=== PATIENT | female | born 1955 | race Two or more races ===

== ENCOUNTER 2024-07-12 11:28 | Inpatient (IN) | payer OTHER ==
[~2024-07-12] VITALS: Ht 165.1 cm; Wt 60.1 kg
[2024-07-12 12:03] VITALS: PULSE 69; RESP 20; O2SAT 97
[2024-07-12 12:15] LABS: Urine Bacteria FEW /hpf (None Seen); Urine Blood 1+ /uL (Negative); Urine Color Yellow (Yellow); Urine Mucus FEW (None Seen); Urine Protein, UAD 1+ (Negative); Urine Urobilinogen 3 mg/dL (Negative); Urine WBC 6 /hpf (0 - 5)
[2024-07-12 12:18] LABS: Urine Clarity Clear (Clear)
[2024-07-12 12:29] LABS: Basophils # (auto) 0 10 ^3/uL (0-0.2); Basophils % (auto) 0.2 % (0.0-2.0); Eosinophils # (auto) 0.1 10 ^3/uL (0-0.8); Eosinophils % (auto) 0.7 % (0.0-7.0); Hematocrit 44.1 % (36.0-46.0); Hemoglobin 14.8 g/dL (12.2-16.2); Mean Corpuscular Hemoglobin 31.2 pg (28.0-32.0); Mean Corpuscular Hgb Conc. 33.5 g/dL (32.0-36.0); Mean Corpuscular Volume 93.3 fL (80.0-100.0); Monocytes # (auto) 1.8 10 ^3/uL (0-1.3); Monocytes % (auto) 11.6 % (0.0-12.0); Neutrophils # (auto) 12.9 10 ^3/uL (1.6-8.6); Neutrophils % (auto) 81.5 % (37.0-80.0); Platelet Count (auto) 201 10^3/uL (140-450); Red Blood Cells 4.73 10^6/uL (4.0-5.20); Red Cell Distribution Width 13.1 % (11.8-14.3); White Blood Cell 15.9 10^3/uL (4.4-10.8)
[2024-07-12 12:54] LABS: Alanine Aminotransferase 36 U/L (7-40); Albumin 4.3 g/dL (3.2-4.8); Alkaline Phosphatase 124 U/L (46-116); Anion Gap 8 (5-15); Aspartate Aminotransferase 31 U/L (13-40); Blood Urea Nitrogen 12 mg/dL (9-23); Calcium 9.6 mg/dL (8.7-10.4); Carbon Dioxide 25 mmol/L (20-30); Chloride 105 mmol/L (98-107); Glucose 117 mg/dL (74-106); Lipase 30 U/L (12-53); Potassium 4.7 mmol/L (3.5-5.1); Sodium 138 mmol/L (136-145)
[2024-07-12 12:55] LABS: Bilirubin, Total 1.2 mg/dL (0.2-1.0)
[2024-07-12] MEDS: ONDANSETRON HCL 4 MG/2 ML VIAL IV ONE (13:36)
[2024-07-12] MEDS: PANTOPRAZOLE 40 MG/10 ML VIAL INJ IV ONE (13:36)
[2024-07-12] MEDS: SODIUM CHLORIDE 0.9% 1,000 ML IV ONE (13:37)
[2024-07-12] MEDS ORDERED: ZOFR4T PO (15:57)
[2024-07-12] MEDS ORDERED: NITROGLYCERIN 0.4 MG SL TAB SL PRN (16:30)
[2024-07-12] MEDS ORDERED: MORPHINE SULFATE INJ 2 MG/ml SYRG IV PRN (16:30)
[2024-07-12] MEDS: DOXYCYCLINE 100MG/250ML 250 ML IV SCH (17:07)
[2024-07-12] MEDS: ONDANSETRON HCL 4 MG/2 ML VIAL IV PRN (18:53)
[2024-07-12] MEDS: MORPHINE SULFATE INJ 2 MG/ml SYRG IV PRN (18:53)
[2024-07-12 22:33] VITALS: BP 123/59; PULSE 70; RESP 17; TEMP 99.2; O2SAT 98
[2024-07-12] MEDS ORDERED: LEVO-849 PO (22:47)
[2024-07-12] MEDS ORDERED: ASPI1TAB20 PO (22:47)
[2024-07-12] MEDS ORDERED: LOSA-535 PO (22:47)
[2024-07-12] MEDS ORDERED: PROG200C21 PO (22:48)
[2024-07-12] MEDS: metroNIDAZOLE 500MG/100ML 100 ML IV SCH (23:37)
[2024-07-12 23:40] VITALS: BP 123/59; PULSE 70; RESP 16; TEMP 99.2; O2SAT 98
[2024-07-13] VITALS (8 sets, daily range): BP systolic 108–133; BP diastolic 47–68; PULSE 20–76; RESP 16–19; TEMP 97.6–98.7; O2SAT 94–96
[2024-07-13] MEDS: MORPHINE SULFATE 4 MG/ML SYR/VIAL IV PRN (01:16)
[2024-07-13] MEDS ORDERED: HYDROmorphone HCL 2 MG/ML VL/or syr IV PRN (02:00)
[2024-07-13 06:17] LABS: Alanine Aminotransferase 43 U/L (7-40); Albumin 3.4 g/dL (3.2-4.8); Alkaline Phosphatase 138 U/L (46-116); Anion Gap 5 (5-15); Aspartate Aminotransferase 45 U/L (13-40); BUN/Creatinine Ratio 8.1 (10.0-20.0); Bilirubin, Total 2.9 mg/dL (0.2-1.0); Blood Urea Nitrogen 7 mg/dL (9-23); Calcium 8.4 mg/dL (8.7-10.4); Carbon Dioxide 22 mmol/L (20-30); Chloride 108 mmol/L (98-107); Glucose 127 mg/dL (74-106); Lipase 48 U/L (12-53); Potassium 3.9 mmol/L (3.5-5.1); Sodium 135 mmol/L (136-145); Total Protein 5.7 g/dL (5.7-8.2)
[2024-07-13 06:18] LABS: INR 1.25 (0.9-1.15); Partial Thromboplastin Time 31.9 SEC (24.5-34.5)
[2024-07-13 06:32] LABS: Basophils # (auto) 0 10 ^3/uL (0-0.2); Basophils % (auto) 0.2 % (0.0-2.0); Eosinophils # (auto) 0.1 10 ^3/uL (0-0.8); Eosinophils % (auto) 0.8 % (0.0-7.0); Hematocrit 37.3 % (36.0-46.0); Hemoglobin 12.7 g/dL (12.2-16.2); Lymphocytes # (auto) 0.6 10 ^3/uL (0.4-5.4); Lymphocytes % (auto) 4.7 % (10.0-50.0); Mean Corpuscular Hemoglobin 31.8 pg (28.0-32.0); Mean Corpuscular Hgb Conc. 33.9 g/dL (32.0-36.0); Mean Corpuscular Volume 93.8 fL (80.0-100.0); Monocytes # (auto) 1.4 10 ^3/uL (0-1.3); Monocytes % (auto) 11.2 % (0.0-12.0); Neutrophils # (auto) 10.5 10 ^3/uL (1.6-8.6); Neutrophils % (auto) 83.1 % (37.0-80.0); Platelet Count (auto) 169 10^3/uL (140-450); Red Blood Cells 3.98 10^6/uL (4.0-5.20); Red Cell Distribution Width 12.6 % (11.8-14.3); White Blood Cell 12.7 10^3/uL (4.4-10.8)
[2024-07-13] MEDS: levoFLOXacin 500MG 100 ML IV SCH (08:24)
[2024-07-13] MEDS: ENOXAPARIN SOD 40 MG/0.4 ML SYRINGE SC SCH (08:24)
[2024-07-13] MEDS: FAMOTIDINE (10MG/ML) 2ML VL IV SCH (08:24)
[2024-07-13] MEDS: HYDROcodone-ACET 5/325MG TAB PO PRN (10:58)
[2024-07-14] VITALS (8 sets, daily range): BP systolic 103–143; BP diastolic 46–81; PULSE 60–85; RESP 16–19; TEMP 97.6–98.9; O2SAT 94–99
[2024-07-14 07:15] LABS: Alanine Aminotransferase 34 U/L (7-40); Alkaline Phosphatase 129 U/L (46-116); Anion Gap 8 (5-15); BUN/Creatinine Ratio 8.9 (10.0-20.0); Blood Urea Nitrogen 8 mg/dL (9-23); Calcium 8.5 mg/dL (8.7-10.4); Carbon Dioxide 21 mmol/L (20-30); Chloride 105 mmol/L (98-107); Glucose 130 mg/dL (74-106); Potassium 3.8 mmol/L (3.5-5.1); Sodium 134 mmol/L (136-145)
[2024-07-14 07:16] LABS: Aspartate Aminotransferase 22 U/L (13-40)
[2024-07-14 07:17] LABS: Albumin 3.4 g/dL (3.2-4.8); Bilirubin, Total 1.4 mg/dL (0.2-1.0); Total Protein 5.8 g/dL (5.7-8.2)
[2024-07-14 07:26] LABS: Basophils # (auto) 0 10 ^3/uL (0-0.2); Basophils % (auto) 0.2 % (0.0-2.0); Eosinophils # (auto) 0 10 ^3/uL (0-0.8); Eosinophils % (auto) 0.1 % (0.0-7.0); Hematocrit 38.3 % (36.0-46.0); Hemoglobin 13.2 g/dL (12.2-16.2); Lymphocytes # (auto) 0.4 10 ^3/uL (0.4-5.4); Lymphocytes % (auto) 3.1 % (10.0-50.0); Mean Corpuscular Hemoglobin 32.1 pg (28.0-32.0); Mean Corpuscular Hgb Conc. 34.5 g/dL (32.0-36.0); Mean Corpuscular Volume 93.2 fL (80.0-100.0); Monocytes # (auto) 1.3 10 ^3/uL (0-1.3); Monocytes % (auto) 10.7 % (0.0-12.0); Neutrophils # (auto) 10.2 10 ^3/uL (1.6-8.6); Neutrophils % (auto) 85.9 % (37.0-80.0); Nucleated Red Blood Cells % 0.1 %; Platelet Count (auto) 181 10^3/uL (140-450); Red Blood Cells 4.11 10^6/uL (4.0-5.20); Red Cell Distribution Width 12.7 % (11.8-14.3); White Blood Cell 11.9 10^3/uL (4.4-10.8)
[2024-07-15] VITALS (8 sets, daily range): BP systolic 115–149; BP diastolic 42–92; PULSE 20–93; RESP 14–18; TEMP 98–98.4; O2SAT 94–98
[2024-07-15] MEDS: BUPIVACAINE 0.25% INJ 50ML VIAL ONE (07:17)
[2024-07-15] MEDS ORDERED: MEPERIDINE HCL (25 MG/ML) 1ML VIAL ONE (08:23)
[2024-07-15] MEDS ORDERED: MIDAZOLAM HCL 2MG/2ML 2ml VIAL (1mg/ml) ONE ×2 (08:23→10:34)
[2024-07-15] MEDS ORDERED: fentaNYL CITRATE 100 MCG/2 ML VL ONE (08:23)
[2024-07-15 08:25] LABS: Basophils # (auto) 0 10 ^3/uL (0-0.2); Basophils % (auto) 0.3 % (0.0-2.0); Eosinophils # (auto) 0.1 10 ^3/uL (0-0.8); Hemoglobin 13.2 g/dL (12.2-16.2); Lymphocytes # (auto) 0.6 10 ^3/uL (0.4-5.4); Mean Corpuscular Hemoglobin 31.3 pg (28.0-32.0); Mean Corpuscular Hgb Conc. 33.9 g/dL (32.0-36.0); Mean Corpuscular Volume 92.5 fL (80.0-100.0); Monocytes # (auto) 1.8 10 ^3/uL (0-1.3); Monocytes % (auto) 16.1 % (0.0-12.0); Neutrophils # (auto) 8.7 10 ^3/uL (1.6-8.6); Neutrophils % (auto) 77.6 % (37.0-80.0); Platelet Count (auto) 232 10^3/uL (140-450); Red Blood Cells 4.21 10^6/uL (4.0-5.20); White Blood Cell 11.3 10^3/uL (4.4-10.8)
[2024-07-15] MEDS ORDERED: ONDANSETRON HCL 4 MG/2 ML VIAL ONE (08:31)
[2024-07-15] MEDS ORDERED: LIDOCAINE 2% (LOCAL ANESTH.) PF 5ml SDV ONE (08:31)
[2024-07-15] MEDS ORDERED: PROPOFOL 10 MG/ML 20 ML IV ONE (08:38)
[2024-07-15] MEDS ORDERED: ROCURONIUM 10MG/ML 10ML VIAL IV ONE (08:38)
[2024-07-15 08:47] LABS: Alanine Aminotransferase 24 U/L (7-40); Albumin 3.5 g/dL (3.2-4.8); Alkaline Phosphatase 124 U/L (46-116); Anion Gap 8 (5-15); Aspartate Aminotransferase 12 U/L (13-40); BUN/Creatinine Ratio 15.4 (10.0-20.0); Blood Urea Nitrogen 12 mg/dL (9-23); Calcium 8.9 mg/dL (8.7-10.4); Carbon Dioxide 23 mmol/L (20-30); Chloride 105 mmol/L (98-107); Glucose 108 mg/dL (74-106); Lipase 26 U/L (12-53); Potassium 3.4 mmol/L (3.5-5.1); Sodium 136 mmol/L (136-145)
[2024-07-15 08:48] LABS: Bilirubin, Total 0.8 mg/dL (0.2-1.0)
[2024-07-15] MEDS: BUPIVACAINE 0.25% INJ 50ML VIAL IJ ONE (10:05)
[2024-07-15] MEDS ORDERED: MORPHINE SULFATE 4 MG/ML SYR/VIAL IV PRN (10:30)
[2024-07-15] MEDS: ONDANSETRON HCL 4 MG/2 ML VIAL IV ONE (10:30)
[2024-07-15] MEDS: MORPHINE SULFATE INJ 2 MG/ml SYRG ONE (11:47)
[2024-07-15] MEDS: MORPHINE SULFATE INJ 2 MG/ml SYRG IV ONE (11:48)
[2024-07-15] MEDS: POTASSIUM CHLORIDE 20 MEQ, LIDOCAINE 1% (LOCAL ANESTH.) 2 ML in SODIUM CHL 0.9% 100 ML IV ONE (13:45)
[2024-07-15] MEDS: D5W/SOD CHL 0.45% 1,000 ML IV SCH (15:00)
[2024-07-15] MEDS ORDERED: LORazepam 2MG/ML-1ML VIAL IV PRN (16:15)
[2024-07-16] VITALS (8 sets, daily range): BP systolic 133–157; BP diastolic 63–83; PULSE 65–81; RESP 14–19; TEMP 97.8–98.2; O2SAT 91–98
[2024-07-16 04:42] LABS: Basophils # (auto) 0 10 ^3/uL (0-0.2); Basophils % (auto) 0.2 % (0.0-2.0); Eosinophils # (auto) 0 10 ^3/uL (0-0.8); Eosinophils % (auto) 0.3 % (0.0-7.0); Hematocrit 37.9 % (36.0-46.0); Lymphocytes # (auto) 0.8 10 ^3/uL (0.4-5.4); Lymphocytes % (auto) 7.4 % (10.0-50.0); Mean Corpuscular Hemoglobin 31.8 pg (28.0-32.0); Mean Corpuscular Hgb Conc. 34.3 g/dL (32.0-36.0); Mean Corpuscular Volume 92.8 fL (80.0-100.0); Monocytes # (auto) 1.4 10 ^3/uL (0-1.3); Monocytes % (auto) 12.9 % (0.0-12.0); Neutrophils # (auto) 8.6 10 ^3/uL (1.6-8.6); Neutrophils % (auto) 79.2 % (37.0-80.0); Platelet Count (auto) 265 10^3/uL (140-450); Red Blood Cells 4.09 10^6/uL (4.0-5.20); Red Cell Distribution Width 13.3 % (11.8-14.3); White Blood Cell 10.8 10^3/uL (4.4-10.8)
[2024-07-16 05:00] LABS: Alanine Aminotransferase 29 U/L (7-40); Albumin 3.3 g/dL (3.2-4.8); Alkaline Phosphatase 122 U/L (46-116); Anion Gap 7 (5-15); Aspartate Aminotransferase 27 U/L (13-40); BUN/Creatinine Ratio 14.7 (10.0-20.0); Blood Urea Nitrogen 11 mg/dL (9-23); Calcium 8.6 mg/dL (8.7-10.4); Carbon Dioxide 24 mmol/L (20-30); Chloride 107 mmol/L (98-107); Glucose 123 mg/dL (74-106); Magnesium 1.7 mg/dL (1.6-2.6); Potassium 3.5 mmol/L (3.5-5.1); Sodium 138 mmol/L (136-145)
[2024-07-16 05:01] LABS: Bilirubin, Total 0.9 mg/dL (0.2-1.0); Total Protein 5.6 g/dL (5.7-8.2)
[2024-07-16] MEDS ORDERED: D5W/SOD CHL 0.45% 1,000 ML IV SCH (15:30)
[2024-07-16] MEDS: LOSARTAN POTASSIUM 50 MG TAB PO SCH (17:43)
[2024-07-17] VITALS (7 sets, daily range): BP systolic 3–167; BP diastolic 74–97; PULSE 62–84; RESP 16–18; TEMP 97.5–98.7; O2SAT 92–96
[2024-07-17 08:19] LABS: Basophils # (auto) 0 10 ^3/uL (0-0.2); Basophils % (auto) 0.6 % (0.0-2.0); Eosinophils # (auto) 0.2 10 ^3/uL (0-0.8); Eosinophils % (auto) 1.9 % (0.0-7.0); Hematocrit 33.7 % (36.0-46.0); Hemoglobin 11.5 g/dL (12.2-16.2); Lymphocytes # (auto) 0.7 10 ^3/uL (0.4-5.4); Lymphocytes % (auto) 8.5 % (10.0-50.0); Mean Corpuscular Hemoglobin 31.4 pg (28.0-32.0); Mean Corpuscular Hgb Conc. 34.1 g/dL (32.0-36.0); Mean Corpuscular Volume 92.1 fL (80.0-100.0); Monocytes # (auto) 1.2 10 ^3/uL (0-1.3); Monocytes % (auto) 14.4 % (0.0-12.0); Neutrophils # (auto) 6.1 10 ^3/uL (1.6-8.6); Neutrophils % (auto) 74.6 % (37.0-80.0); Platelet Count (auto) 269 10^3/uL (140-450); Red Blood Cells 3.66 10^6/uL (4.0-5.20); Red Cell Distribution Width 13.3 % (11.8-14.3); White Blood Cell 8.2 10^3/uL (4.4-10.8)
[2024-07-17 08:21] LABS: Alanine Aminotransferase 28 U/L (7-40); Albumin 3.1 g/dL (3.2-4.8); Alkaline Phosphatase 155 U/L (46-116); Anion Gap 7 (5-15); Aspartate Aminotransferase 35 U/L (13-40); BUN/Creatinine Ratio 14.3 (10.0-20.0); Bilirubin, Total 0.7 mg/dL (0.2-1.0); Blood Urea Nitrogen 10 mg/dL (9-23); Calcium 8.5 mg/dL (8.7-10.4); Carbon Dioxide 25 mmol/L (20-30); Chloride 107 mmol/L (98-107); Glucose 99 mg/dL (74-106); Potassium 3.5 mmol/L (3.5-5.1); Sodium 139 mmol/L (136-145); Total Protein 5.3 g/dL (5.7-8.2)
[2024-07-17] MEDS ORDERED: AMOX500T86 PO (15:57)
[2024-07-17] MEDS ORDERED: HYDR-4902 PO (15:57)
[2024-07-17] MEDS ORDERED: SENN-105 PO (15:57)
[2024-07-17] MEDS ORDERED: LEVO500T91 PO (16:49)
== END 2024-07-17 18:23 | disposition home health service (06) | DRG 417 ==
LOC: ER 11:28 → TELE-CENTR 16:20 → TELE 16:20 → TELE-CENTR 22:26
PROVIDERS: ADMIT Hospitalist; ATTEND Hospitalist
PROC: 0DNW4ZZ Release Peritoneum, Percutaneous Endoscopic Approach (ICD-10-PCS; 2024-07-15)
PROC: 0W9G4ZZ Drainage of Peritoneal Cavity, Percutaneous Endoscopic Approach (ICD-10-PCS; 2024-07-15)
PROC: 0FT44ZZ Resection of Gallbladder, Percutaneous Endoscopic Approach (ICD-10-PCS; principal; 2024-07-15 08:30)
DX: K80.00 Calculus of gallbladder with acute cholecystitis without obstruction (principal); K65.1 Peritoneal abscess; K66.0 Peritoneal adhesions (postprocedural) (postinfection); I10 Essential (primary) hypertension; E03.9 Hypothyroidism, unspecified; Z96.642 Presence of left artificial hip joint; K82.A1 Gangrene of gallbladder in cholecystitis; Z86.73 Personal history of transient ischemic attack (TIA), and cerebral infarction without residual deficits; Z79.82 Long term (current) use of aspirin; Z79.899 Other long term (current) drug therapy; Z87.891 Personal history of nicotine dependence; Z98.82 Breast implant status; Z82.49 Family history of ischemic heart disease and other diseases of the circulatory system; Z88.0 Allergy status to penicillin
CPT/HCPCS: 47564; 99285; S2900; 36415; 71045; 74176; 74181; 76705; 78226; 80053; 81001; 83605; 83690; 83735; 84484; 85025; 85610; 85730; 86850; 86900; 86901; 93005; G0378; J1956; J2001; J2250; J2405; J2470; J2704; J3490